=== PATIENT | female | born 1965 | race Caucasian/White ===

== ENCOUNTER → 2023-11-06 15:43 | Outpatient (REF) | payer OTHER, SELFPAY | LOC: RAD 15:43 | PROVIDERS: ATTENDING PHYSICIAN Family Medicine | DX: R05.9 Cough, unspecified (principal) | CPT/HCPCS: 71046 ==

== ENCOUNTER → 2023-11-27 14:18 | Outpatient (REF) | payer OTHER, SELFPAY | LOC: RCS 14:18 | PROVIDERS: ATTENDING PHYSICIAN Internal Medicine Interventional Cardiology; FAMILY PHYSICIAN Family Medicine | DX: I25.10 Atherosclerotic heart disease of native coronary artery without angina pectoris (principal) | CPT/HCPCS: 93017; 93350 ==

== ENCOUNTER → 2023-12-25 11:35 | Outpatient (REF) | payer OTHER, SELFPAY | LOC: RAD 11:35 | PROVIDERS: ATTENDING PHYSICIAN Internal Medicine Gastroenterology; FAMILY PHYSICIAN Family Medicine | DX: R19.5 Other fecal abnormalities (principal); K59.09 Other constipation | CPT/HCPCS: 74018 ==

== ENCOUNTER → 2024-01-12 06:37 | Day surgery (SDC) | payer OTHER, SELFPAY | LOC: GI 06:37 | PROVIDERS: ATTENDING PHYSICIAN Internal Medicine Gastroenterology | DX: K31.7 Polyp of stomach and duodenum (principal); K22.89 Other specified disease of esophagus; K31.89 Other diseases of stomach and duodenum | CPT/HCPCS: 43239; 88305; 88342 ==

== ENCOUNTER → 2024-02-09 15:00 | Outpatient (REF) | payer OTHER, SELFPAY | LOC: HWRAD 15:00 | PROVIDERS: ATTENDING PHYSICIAN Surgery Vascular Surgery; FAMILY PHYSICIAN Family Medicine | DX: I72.8 Aneurysm of other specified arteries (principal) | CPT/HCPCS: 74176 ==

== ENCOUNTER → 2024-06-02 12:52 | Outpatient (REF) | payer OTHER, SELFPAY | LOC: RAD 12:52 | PROVIDERS: ATTENDING PHYSICIAN Internal Medicine Rheumatology; FAMILY PHYSICIAN Family Medicine | DX: M81.0 Age-related osteoporosis without current pathological fracture (principal) | CPT/HCPCS: 77080 ==

== ENCOUNTER → 2024-07-01 15:48 | Outpatient (REF) | payer OTHER, SELFPAY | LOC: RAD 15:48 | PROVIDERS: ATTENDING PHYSICIAN Physician Assistant Surgical; FAMILY PHYSICIAN Family Medicine | DX: M54.12 Radiculopathy, cervical region (principal) | CPT/HCPCS: 73030 ==

== ENCOUNTER 2024-12-20 04:56 | Emergency (ER) | payer OTHER, SELFPAY ==
[2024-12-20 04:58] VITALS: BP 132/82
[2024-12-20 05:15] VITALS: BP 162/94
[2024-12-20 05:57] VITALS: BMI 21.3
[2024-12-20 06:00] VITALS: BP 124/82
--- NOTE | 2024-12-20 06:23 | ED.GENMED ---
History of Present Illness
General
Chief Complaint: Headache
Source: patient
Exam Limitations: none
Time Seen by Provider: 12/20/24 06:08
History of Present Illness
History of Present Illness:
See MDM
Past History
Past History
ED Past Medical History: CAD, GERD, Hypercholesterolemia and Hypothyroidism
ED Past Surgical History: None
Social History
Tobacco: Former smoker
Alcohol: Daily (Wine or Vodka 2-3 glasses)
Drug: None
Personal:
Living: with family
Phy Exam
Physical Exam
Physical Exam:
See MDM
Course
Orders/Labs/Results
Orders:
Orders
12/20/24 06:22
0.9% Sodium Chloride 1000 ml [Nss] 1,000 ml IV BOLUS
Diphenhydramine [Benadryl] 25 mg IV NOW STA
Ketorolac [Toradol] 30 mg IV NOW STA
Metoclopramide [Reglan] 10 mg IV NOW STA
12/20/24 06:36
Complete Blood Count/With Diff Urgent
Comprehensive Metabolic Panel Urgent
TSH Urgent
Comment: ADD ON
12/20/24 06:39
Add On- LAB Urgent
Tests Added?: TSH
Abnormal Lab Results
12/20/24
06:36
RBC 3.77 L 10^6/uL
(4.20-5.40)
Hct 36.1 L %
(37.0-47.0)
MCH 33.4 H pg
(27.0-31.0)
Alkaline Phosphatase 31 L U/L
(38-126)
Total Protein 5.9 L g/dl
(6.3-8.2)
12/20/24 06:36
12/20/24 06:36
Vital Signs
Initial and Last Documented VS:
Initial Vital Signs
Temp Pulse Resp BP Pulse Ox
97.6 F 80 20 132/82 100
12/20/24 04:58 12/20/24 04:58 12/20/24 04:58 12/20/24 04:58 12/20/24 04:58
Last Documented Vital Signs
Temp Pulse Resp BP Pulse Ox
97.6 F 76 16 124/84 98
12/20/24 04:58 12/20/24 07:25 12/20/24 07:25 12/20/24 07:25 12/20/24 07:25
MDM/Problems Addressed
Differential Diagnosis Includes:
Note:
CHIEF COMPLAINT(S)
Headache
HISTORY OF PRESENT ILLNESS
The patient is a 59-year-old female with a history of migraines, presenting with headache that has been persistent since a nerve ablation procedure performed on October 18. The patient describes the pain as severe, with a shooting component from the
back into the head and affecting the whole head. She reports that the headache has progressed since this morning, worsening her usual migraine pattern, which is typically unilateral and throbbing. Additional symptoms reported include sensitivity to
light, though no blurred vision or arm weakness is noted. The headache persists despite prior treatments, including botulinum toxin injections and nerve ablations. The patient has been advised by her neurologist to manage acute episodes with Nurtec
and to seek emergency care for worsening symptoms. The patient is not currently on blood thinners. Patient does state that prednisone has helped with these prior episodes.
ADDITIONAL HISTORY OBTAINED FROM SOURCES OTHER THAN THE PATIENT
According to the patient, her neurologists PA suggested a visit to the emergency department for further management of the acute headache episode.
PHYSICAL EXAM
General: Well appearing and non-toxic
HEENT: protecting airway. EOMI. Pupils equal and reactive
Neck: supple. No carotid tenderness. Posterior neck without skin changes or rash
CV: No evidence of cyanosis
Resp: No accessory muscle use
Abd: Non-distended
Extremities: No deformities
Neuro: alert
Psych: Normal affect
Skin: Intact
Nursing notes reviewed and vital signs reviewed.
PROBLEM LIST
Acute: Headache post-cervical nerve ablation, likely tension headache exacerbating underlying migraine condition.
PLAN
Administer a migraine cocktail including ketorolac (Toradol), metoclopramide (Reglan), and diphenhydramine (Benadryl) via IV, considering the patient�s history of gastrointestinal issues. Perform basic blood work during IV administration. Prescribe
diclofenac sodium as an alternative to oral ketorolac due to current restrictions. Initiate a course of prednisone to assist in headache management if symptoms have persisted. Educate the patient on dosing to allow flexibility in tapering as needed.
Consider follow-up consultations with neurology for potential adjustments in migraine management plan.
DIFFERENTIAL DIAGNOSIS
The Differential Diagnosis includes, in no particular order and is not limited to:
1. Medication overuse headache
2. Tension-type headache
3. Cervicogenic headache
4. Cluster headache
5. Sinus headache
CARE-UPDATE
12/20/24 - 08:03
The patient reports feeling significantly better. New medication, similar in function to Toradol and previously administered via IV, will now be prescribed in pill form and sent to the patients pharmacy. Awaiting additional steroids. Lab results are
satisfactory, and preparations are being made for the patient�s discharge.
Disposition:
SUMMARY OF ENCOUNTER
The patient, a 59-year-old female with a history of migraines, presented to the emergency department with acute headache persistent since a cervical nerve ablation procedure. The headache was described as severe, with a shooting component affecting
the entire head, exacerbating her usual
migraine symptoms. Management involved the administration of a migraine cocktail including ketorolac, metoclopramide, and diphenhydramine via IV, which resulted in significant symptom improvement.
DISPOSITION
The patient feels comfortable going home with a plan to follow up with her neurologist.
EMERGENCY TREATMENTS ADMINISTERED
Patient was administered ketorolac (Toradol), metoclopramide (Reglan), and diphenhydramine (Benadryl) via IV.
PLAN
Prescribe steroids to be taken if symptoms persist and diclofenac as an alternative to oral ketorolac. Ensure follow-up with neurologist.
INDEPENDENT REVIEW OF LABS AND INTERPRETATION OF TESTS
My independent review of lab tests indicates there are no clinically relevant abnormalities.
MEDICATION RECONCILIATION
Steroids to be prescribed if symptoms persist. Diclofenac prescribed as an alternative to oral ketorolac.
MEDICAL DECISION MAKING
1. Number & Complexity of Problems:
Chronic conditions affecting care include a history of migraines. Differential diagnosis considered headaches post-cervical nerve ablation, tension-type headaches, medication overuse headaches, and other potential migraine complications.
2. Data Reviewed:
Category 1: Labs reviewed, indicating no clinically relevant abnormalities.
3. Risk:
Consideration of outpatient management was made due to reassuring work-up, stable vitals, symptom control, and reliable patient follow-up.
PATIENT EDUCATION AND COUNSELING
Discussed the importance of follow-up with a neurologist to adjust migraine management as necessary.
FOLLOW-UP INSTRUCTIONS
Instructed to follow up with her neurologist for ongoing migraine management and any necessary adjustments to her treatment plan.
PATHOLOGIES TO CONSIDER
Consideration given to the possibility of tension-type headaches, medication overuse headaches, cervicogenic headache, and recurrence of her typical migraine with aura.
*Pulse Oximetry
SaO2: 100
*Critical Care Note
Total Time (30-74mins, 75-104mins- exclusive of procedures): Not Applicable
ED Attending Note
-
Portions of this chart may have been created with voice recognition software.� Occasional wrong word or��sound alike� substitutions may have occurred due to the inherent limitations of voice recognition software.
Discharge Plan
Departure
Patient Disposition: Home (Routine Discharge)
Date of Disposition: 12/20/24
Time of Disposition: 08:07
Patient with high blood pressure during this ER visit?: No
Discharge Problem:
Headache
Instructions: Headache, Adult (DC)
Prescriptions:
New
prednisone 10 mg tablet
See Rx Instructions .ROUTE .COMPLEX Qty: 45 0RF
Rx Instructions:
5 tabs day 1-3, 4 tabs day 4-6, 3 tabs day 7-9, 2 tabs day 10-12, 1 tab day 13-15
diclofenac sodium 75 mg tablet,delayed release (DR/EC)
75 mg PO BID PRN (Reason: Pain) Qty: 20 0RF
No Action
aspirin [Adult Low Dose Aspirin] 81 MG tablet,delayed release (DR/EC)
81 mg PO DAILY
rosuvastatin 5 MG tablet
5 mg PO MUST ENTER DOSE
Rx Instructions:
TWO ON ONE OFF
famotidine 40 MG tablet
20 mg PO HS
Botox Cosmetic 50 UNITS recon soln
155 units IM .EVERY 3 MONTHS
Repatha Syringe 140 MG/ML syringe
140 mg SQ .DESTINY TWO WEEKS
Emgality Pen 120 MG/ML pen injector
120 mg SQ MONTHLY
Dexilant
30 mg PO DAILY
multivitamin Tablet
1 tab PO DAILY
clonazepam [Klonopin] 1 mg Tablet
1.5 mg PO HS
levothyroxine [Synthroid] 112 mcg Tablet
112 mcg PO DAILY
Xiidra 5 % Dropperette
1 drp OPHTHALMIC (EYE) BID
magnesium glycinate
500 - 1,000 mg PO HS
progesterone
200 mg PO HS
spironolactone 50 mg Tablet
50 mg PO HS
Bio-Identical Hormones
PO [id number]
semaglutide (weight loss)
15 mg SC WEEKLY
Referrals:
Martin Nielsen DO [Family Provider, Family Practice]
Activity Restrictions/Additional Instructions:
Please return for any worsening symptoms.
You may return at any time if you have further concerns.
Please follow up with your doctor at the first available appointment, preferably this week.
Thank you for choosing [facility].
Interventions
Interventions:
*Risk Screen - Suicide Last Done: 12/20/24 04:58
*General Assessment Last Done: 12/20/24 05:21
*Neglect/Abuse Screening Last Done: 12/20/24 04:58
*ED- Fall Risk Assessment Last Done: 12/20/24 05:21
*ED COVID-19 Vaccine History Last Done: 12/20/24 05:21
ED- Neurological Assessment Last Done: 12/20/24 05:23
Discharge Date and Time
Print Language: POLISH
[2024-12-20] MEDS: REGLAN 10 MG IV (06:30)
[2024-12-20] MEDS: BENADRYL 25 MG IV (06:31)
[2024-12-20] MEDS: NSS 1000 IV (06:33)
[2024-12-20] MEDS: TORADOL 30 MG IV (06:33)
[2024-12-20 06:45] LABS: % Basophils 0.3 % (0-2); % Eosinophils 0.5 % (0-6); % Immature Granulocytes 0.3 % (0-0.5); % Lymphocytes 31.3 % (20.5-51.1); % Neutrophils 58.6 % (42.2-75.2); Absolute Lymphocytes 1.8 10^3/uL (1.2-3.4); Absolute Monocytes 0.5 10^3/uL (0.1-0.6); Absolute Neutrophils 3.4 10^3/uL (1.4-6.5); Hematocrit 36.1 % (37.0-47.0); Hemoglobin 12.6 g/dL (12.0-16.0); Mean Corp Hgb Conc. 34.9 g/dL (33.0-37.0); Mean Corpuscular Hgb 33.4 pg (27.0-31.0); Mean Corpuscular Volume 95.8 fL (81.0-99.0); Mean Platelet Volume 8.7 fL (7.4-10.4); Nucleated Red Blood Cells % 0 %; Platelet Count 174 10^3/uL (130-400); Red Blood Cell Count 3.77 10^6/uL (4.20-5.40); Red Cell Dist. Width 13.2 % (11.5-14.5); White Blood Cell Count 5.9 10^3/uL (4.8-10.8)
[2024-12-20 07:06] LABS: ALT (SGPT) 23 U/L (0-35); AST (SGOT) 23 U/L (14-36); Albumin 4.1 g/dl (3.5-5.0); Alkaline Phosphatase 31 U/L (38-126); Blood Urea Nitrogen 11 mg/dl (7-17); Calcium 9.1 mg/dl (8.4-10.2); Carbon Dioxide 27 mmol/L (22-30); Chloride 107 mmol/L (98-107); Estimated Creatinine Clearance 78 ml/min; Glucose 81 mg/dl (70-99); Potassium 4.2 mmol/L (3.5-5.1); Sodium 138 mmol/L (135-145); Total Bilirubin 0.4 mg/dl (0.2-1.3); Total Protein 5.9 g/dl (6.3-8.2); eGFR > 60.00
[2024-12-20 07:25] VITALS: BP 124/84
[2024-12-20 08:35] VITALS: BP 119/78
--- NOTE | 2024-12-20 08:35 | EDRN ---
Reviewed discharge instructions with patient. Verbalized understanding. Taken to lobby in wheelchair.
[2024-12-20 10:16] LABS: TSH 0.13 uIU/ml (0.47-4.68)
== END 2024-12-20 08:35 | disposition home or self-care (01) ==
LOC: EMR 04:56
PROVIDERS: EMERGENCY PHYSICIAN Student in an Organized Health Care Education/Training Program; FAMILY PHYSICIAN Family Medicine
DX: R51.9 Headache, unspecified (principal); I25.10 Atherosclerotic heart disease of native coronary artery without angina pectoris; K21.9 Gastro-esophageal reflux disease without esophagitis; E78.00 Pure hypercholesterolemia, unspecified; E03.9 Hypothyroidism, unspecified; Z87.891 Personal history of nicotine dependence
CPT/HCPCS: 99283; 80053; 84443; 85025